=== PATIENT | female | born 1985 | race Caucasian/White ===

== ENCOUNTER → 2020-07-30 | Outpatient (CLI) | payer OTHER ==
[2020-07-30 18:11] LABS: HEMOGLOBIN 14.5 gm/dl (12.3-15.3); RED BLOOD COUNT 4.66 M/UL (4.00-5.10)
[2020-07-30 18:34] LABS: BUN/CREATININE RATIO 14 (0-10)
== END ==
LOC: LAB 17:35
PROVIDERS: Family Medicine
DX: R07.9 Chest pain, unspecified (principal); R06.02 Shortness of breath; E03.9 Hypothyroidism, unspecified
CPT/HCPCS: 36415; 80053; 84439; 84443; 85027; 85379

== ENCOUNTER → 2020-07-31 | Outpatient (CLI) | payer OTHER | LOC: CT 11:01 | DX: R07.9 Chest pain, unspecified (principal); R79.89 Other specified abnormal findings of blood chemistry; R06.02 Shortness of breath | CPT/HCPCS: 71275; Q9967 ==